=== PATIENT | female | born 1950 ===

== ENCOUNTER 2016-05-20 09:27 | Day surgery (SDC) | payer OTHER ==
[2016-05-20] MEDS ORDERED: Lactated Ringer's 500 ML IV ONE (10:47)
[2016-05-20] MEDS ORDERED: Propofol 10 mg/ml Inj (20 ML) ONE (12:00)
[2016-05-20 12:28] VITALS: TEMP 97; O2SAT 100
[2016-05-20 12:56] VITALS: BP 114/61; PULSE 89; RESP 22
== END 2016-05-20 13:09 | disposition home or self-care (01) ==
LOC: EDBD 09:27 → H.ENDO 09:27
PROVIDERS: ATTEND Internal Medicine Gastroenterology
DX: K92.2 Gastrointestinal hemorrhage, unspecified (principal); K64.8 Other hemorrhoids; R19.5 Other fecal abnormalities; I48.91 Unspecified atrial fibrillation; E11.9 Type 2 diabetes mellitus without complications; I10 Essential (primary) hypertension